=== PATIENT | male | born 1960 | race Caucasian/White ===

== ENCOUNTER 2019-05-02 16:19 | Emergency (ER) | payer OTHER, SELFPAY ==
--- NOTE | ~2019-05-02 | XR_ITS ---
EXAMINATION: XR elbow LT 2V DATE: 05/02/2019 16:59 INDICATION: Left elbow pain. TECHNIQUE: 2 views of left elbow were obtained. COMPARISON: None. FINDINGS: Bone alignment is normal. No fracture. There is mild elbow joint osteoarthritis. No elbow j oint effusion. A 2 mm density overlies the dorsal soft tissues of the proximal forearm on the lateral view without correlate on the anteroposterior view, likely an artifact. IMPRESSION: 1. Mild elbow joint osteoarthritis. Reviewed, dictated and finalized at location [facility] [employer]
[2019-05-02 16:48] VITALS: BP 145/87; PULSE 88; RESP 14; TEMP 36.5; O2SAT 96
[2019-05-02] MEDS: TETANUS,DIPHTHERIA,AC PERTUSSIS ADULT 0.5 ML (ADACEL) IM (17:10)
--- NOTE | 2019-05-02 17:22 | ED.UPPEXIN ---
HPI - Extremity Injury (Upper) General Chief Complaint: Extremity Injury, Upper Stated Complaint: ELBOW PAIN Source: patient Mode of arrival: ambulatory Limitations: no limitations History of Present Illness HPI narrative: 58-year-old male patient presents with a swollen tender red warm lateral aspect of his left elbow after he inadvertently while working struck his forearm and elbow on a nail causing initially some mild discomfort but after the course of the week has become swollen red warm and tender. Currently there is no fever no chills, is not up-to-date with his tetanus. No shortness of breath no nausea vomiting or abdominal pain. complaint: injury to: left Onset (ago): week(s) Other Extremity Injury: Left: forearm Handedness: right Place: work Severity: mild Relieving factors: none Exacerbating factors: none Associated symptoms: suspects foreign body Related Data Allergies Allergy/AdvReac Type Severity Reaction Status Date / Time No Known Allergies Allergy Mild Verified 01/01/08 17:10 Review of Systems Review of Systems: All systems reviewed & are unremarkable except as noted in HPI and below PMFSH Past Medical History Medical History Patient denies medical problems Exam Const: General: no acute distress and alert Orientation/consciousness: patient oriented x3 HENMT: Head: normal to inspection Eyes: Conjunctivae: conjunctivae normal Pupils: Equal, round and reactive pupils present Neck: Neck: normal visual inspection and no lymphadenopathy Chest: Chest palpation & inspection: normal inspection of the chest Resp: Effort & Inspection: normal respiratory effort Auscultation: clear to auscultation bilaterally Cardio: Rate: regular rate Rhythm: regular rhythm GI: GI Palp: Yes Soft to palpation Skin: Wounds: wounds noted Other: Area on the lateral aspect of his left forearm with some a small punctate lesion are scabbed over with some warmth tenderness and mild swelling has good range of motion in his elbow. Extrem: General: normal to inspection Psych: Mental Status: mental status grossly normal Course Vital Signs Vital signs: Vital Signs Temperature 36.5 C 05/02/19 16:48 Pulse Rate 88 05/02/19 16:48 Respiratory Rate 14 05/02/19 16:48 Blood Pressure 145/87 H 05/02/19 16:48 Pulse Oximetry 96 05/02/19 16:48 Temperature 36.5 C 05/02/19 16:48 Pulse Rate 88 02/13/20 16:48 Respiratory Rate 14 05/02/19 16:48 Blood Pressure 145/87 H 05/02/19 16:48 Pulse Oximetry 96 05/02/19 16:48 Critical Care Time Critical Care Time Critical Care Time: No Discharge Plan Discharge Clinical Impression: Foreign body (FB) in soft tissue Cellulitis Qualifiers: Site of cellulitis: extremity Site of cellulitis of extremity: upper extremity Laterality: left Qualified Code(s): L03.114 - Cellulitis of left upper limb Patient Disposition: Home, Self-Care Condition: Stable Instructions: Antibiotic Form, Puncture Wound (ED), Soft Tissue Foreign Body (ED), Cellulitis (ED) Additional Instructions: Advised patient to follow-up with primary care physician within 1 week for further evaluation and treatment. Take antibiotics as prescribed. Prescriptions: New cephalexin [Keflex] 500 mg capsule 500 mg PO Q8H Qty: 30 RF: 0 Follow-up/Referrals: UNKNOWN,DOCTOR [Primary Care Provider] - Time of Disposition: 17:29
[2019-05-02] MEDS: cefTRIAXone 1 GM VIAL IM (17:32)
[2019-05-02 17:38] VITALS: RESP 14; O2SAT 100
== END 2019-05-02 17:39 | disposition home or self-care (01) ==
PROVIDERS: Emergency Provider Emergency Medicine
DX: S50.352A Superficial foreign body of left elbow, initial encounter (principal); L03.114 Cellulitis of left upper limb
CPT/HCPCS: 73070; 90471; 90715; 96372; 99283; J0696